=== PATIENT | female | born 1975 | race Two or more races ===

== ENCOUNTER 2016-08-05 16:02 | Emergency (ER) | payer SELFPAY ==
[2016-08-05 16:31] VITALS: TEMP 98.6; BMI 31.0
[2016-08-05 16:57] LABS: AUTOMATED BASOPHIL 0.7 % (0-2); AUTOMATED EOSINOPHIL 4.9 % (0-5); AUTOMATED LYMPH 29.7 % (17-44); AUTOMATED MONOCYTE 7.3 % (3-10); AUTOMATED NEUTROPHIL 57.4 % (45-76); MPV 8.2 fL (7.4-10.4)
--- NOTE | 2016-08-05 18:37 | EDPRACDOC ---
- General Information Chief Complaint: Vaginal Bleeding Stated Complaint: VAGINAL BLEEDING/ POSSIBLE Time Seen by Provider: 08/05/16 18:28 Information Source: Patient Home Medications: Home Medications Oxycodone Immediate Release [Oxycodone Immediate Release (OxyIR)] 5 mg PO Q6H PRN #15 tab 08/05/16 Vit/Iron Fumarate/FA [ Tablet] 1 tab PO DAILY 08/05/16 Promethazine [Phenergan] 25 mg PO Q4-6H PRN #15 tab 08/05/16 Allergies/Adverse Reactions: Allergies Allergy/AdvReac Type Severity Reaction Status Date / Time No Known Allergies Allergy Verified 08/05/16 16:46 - History of Present Illness Onset: 1 WEEK HPI: Pt states she was seen in ED on 07/24 and was told she was having miscarriage. Pt returns to ED to see "if I'm still ". Pt states vaginal bleeding 1-2 pads in 12 hours with lower abd pain, nausea. Denies fever, vomiting, changes in bowel or bladder, rash. Description: Reports: Spontaneous Relevant History: Reports: Currently Control Method: Reports: None Blood Type: O+ Pain Severity: Moderate Vaginal Bleeding Description: Reports: Bright Red # Pads Used in the Last 12/24 Hours: 1-2 Associated Signs & Symptoms: Reports: Abdominal Pain, Nausea, Vaginal Bleeding ED Past Medical History - History Reviewed Yes Nurses notes reviewed and agree except as marked - Patient Medical History Psychological History: Denies: Depression Systemic History: Denies: Cancer, Anemia, Lupus Surgical History: Denies: Hysterectomy - Family Medical History Reports: Cancer (SISTER). Denies: Hypertension, Diabetes, Stroke, Cardiac Disorders - Social Medical History Smoking Status: Never smoker ETOH: None Substance Abuse: None EDM Review of Systems - Review of Systems Constitutional: No Symptoms Reported. negative: Fever, Chills, Weakness, Fatigue, Loss of Appetite Respiratory: No Symptoms Reported. negative: Cough, Brassy Cough, Barky Cough, Shortness of Breath, Wheezing, Hemoptysis Cardiovascular: No Symptoms Reported. negative: Chest Pain, Palpitations, Syncope, Edema, Orthopnea, PND, Skin Mottling, Cyanosis Gastrointestinal: Nausea, Pain Genitourinary: Bleeding Neurological: No Symptoms Reported. negative: Headache, Dizziness, Seizure, Numbness, Weakness, Speech Difficulty, Gait Difficulty Musculoskeletal: No Symptoms Reported. negative: Neck, Chestwall, Ribs, Back, Shoulder, Arm, Elbow, Forearm, Wrist, Hand, Pelvis, Hip, Femur, Knee, Leg, Ankle , Foot Integumentary: No Symptoms Reported. negative: Itching, Rash, Bruising, Wound Allergic/Immunologic: No Symptoms Reported. negative: Hives, Itching Hematologic: No Symptoms Reported. negative: Lymphadenopathy, Easy Bruising, Easy Bleeding Psychiatric: No Symptoms Reported. negative: Anxiety, Depression, Hallucinations, Insomnia, Suicidal - Physical Exam Constitutional: No apparent distress, Alert Oriented to: Time, Person, Place Last recorded Vital Signs: Last Vital Signs Temp 98.6 F 08/05/16 16:27 Pulse 79 08/05/16 16:27 Resp 18 08/05/16 16:27 BP 115/59 L 08/05/16 16:27 Pulse Ox 98 08/05/16 16:27 Oxygen Pulse Oxygen Saturation 98 O2 Device Room Air Oxygen Flow Rate Fraction of Inspired Oxygen ( FIO2) - HEENT Head: Normal ( normocephalic) Eye Exam: Normal (PERRL, EOMI, Sclera white) - Respiratory/Cardiovascular Respiratory: Normal - CTA (BBS clear to auscultation without adventitious sounds ) Cardiovascular: Normal (RRR without murmur, gallop or rub) - GI Auscultation: Normal (NABS) Palpation: Normal (Soft,No rebound or guarding, non distended) Tenderness: Non tender - Musculoskeletal Back: Normal (Non-Tender) Extremities: Normal (Normal tone, Pulses 2+ No cyanosis or edema, FROM) - Integumentary Skin: Normal, Warm, Dry Lymphatics: Normal (no adenopathy) - Neurologic Memory Impaired: Normal Motor Function: Normal (Normal tone, Pulses 2+ No cyanosis or edema, FROM) Mood Description: Normal Perception: Normal - Differential Diagnosis Inevitable , Incomplete , Threatened - Results 08/05/16 16:47 WBC 9.9 xk/uL (3.8-10.8) 08/05/16 16:47 RBC 4.36 xM/uL (4.20-5.40) 08/05/16 16:47 Hgb 11.4 g/dL (12.0-16.0) L 08/05/16 16:47 Hct 34.9 % (36-47) L 08/05/16 16:47 MCV 80 fL (81-99) L 08/05/16 16:47 MCH 26.3 pg (27-32) L 08/05/16 16:47 MCHC 32.8 g/dl (33-36) L 08/05/16 16:47 RDW 16.2 % (11.5-14.5) H 08/05/16 16:47 Plt Count 335 xk/uL (130-400) 08/05/16 16:47 MPV 8.2 fL (7.4-10.4) 08/05/16 16:47 Neut % (Auto) 57.4 % (45-76) 08/05/16 16:47 Lymph % (Auto) 29.7 % (17-44) 08/05/16 16:47 Mclennan % (Auto) 7.3 % (3-10) 08/05/16 16:47 Eos % (Auto) 4.9 % (0-5) 08/05/16 16:47 Baso % (Auto) 0.7 % (0-2) 08/05/16 16:47 Absolute Neuts (auto) 5.64 xk/uL (1.7-8.2) 08/05/16 16:47 Absolute Lymphs (auto) 2.87 xk/uL (0.65-4.75) 08/05/16 16:47 Beta HCG, Quant 17.6 mIU/mL (<5) 08/05/16 16:47 Lab Results 08/05/16 08/05/16 16:47 16:47 WBC 9.9 RBC 4.36 Hgb 11.4 L Hct 34.9 L MCV 80 L MCH 26.3 L MCHC 32.8 L RDW 16.2 H Plt Count 335 MPV 8.2 Neut % (Auto) 57.4 Lymph % (Auto) 29.7 Mclennan % (Auto) 7.3 Eos % (Auto) 4.9 Baso % (Auto) 0.7 Absolute Neuts (auto) 5.64 Absolute Lymphs (auto) 2.87 Beta HCG, Quant 17.6 Decision Time to Discharge: 18:35 - Departure Disposition: Home Condition: Good Final Diagnosis: Spontaneous Instructions: Miscarriage (ED) Education/Counseling Given To: Patient Education/Counseling Given Regarding: Diagnosis, Treatment, Follow Up Referrals: None,No Provider [Primary Care Provider] - One Week Carroll Topete MD [Staff Physician] - One Week Prescriptions: Oxycodone Immediate Release [Oxycodone Immediate Release (OxyIR)] 5 mg PO Q6H PRN #15 tab PRN Reason: Pain Promethazine [Phenergan] 25 mg PO Q4-6H PRN #15 tab PRN Reason: Nausea/Vomiting Additional Instructions: Follow up with OB to confirm level returns to normal. Return to the Emergency Department for increasing or different abdominal pain, vaginal bleeding that soaks two pads per hour for two hours, feeling like you might pass out, or any concerns.
[2016-08-05 18:39] VITALS: BP 112/64; PULSE 84
== END 2016-08-05 18:49 | disposition home or self-care (01) ==
LOC: ED 16:02
DX: O03.9 Complete or unspecified spontaneous abortion without complication (principal)
CPT/HCPCS: 36415; 84702; 85025; 99283